=== PATIENT | male | born 1970 | race Caucasian/White ===

== ENCOUNTER → 2017-01-13 | Outpatient (CLI) | payer OTHER | LOC: KOH-I 15:42 | DX: M25.512 Pain in left shoulder (principal); M25.612 Stiffness of left shoulder, not elsewhere classified; S42.252A Displaced fracture of greater tuberosity of left humerus, initial encounter for closed fracture; M75.82 Other shoulder lesions, left shoulder; M75.52 Bursitis of left shoulder | CPT/HCPCS: 73221 ==